=== PATIENT | female | born 1970 | race Caucasian/White ===

== ENCOUNTER 2019-01-06 13:09 | Emergency (ER) | payer OTHER, MEDICAID ==
[~2019-01-06] VITALS: Ht 162.6 cm; Wt 49.9 kg
[2019-01-06 13:15] VITALS: BP_SYST 96
--- NOTE | 2019-01-06 13:15 | NUR ---
Patient triaged and placed in waiting room. VSS and patient appears in no acute distress at this time. Accompanied by SON, awaiting available bed, and MD notified of need for MSE.
--- NOTE | 2019-01-06 14:05 | NUR ---
BROUGHT BACK TO BED #8 AND TRIAGED, REPORT GIVEN TO ANDREA
[2019-01-06] MEDS ORDERED: KETOROLAC TROMETHAMINE 60 MG/2 ML VIAL IM ONE (14:15)
--- NOTE | 2019-01-06 14:20 | NUR ---
Pt presents to ED c/o R foot redness tender to palpation.
[2019-01-06 14:25] LABS: BASOPHILS # (AUTO) 0.1 K/uL (0.0-0.2); BASOPHILS % (AUTO) 0.9 % (0.0-2.0); EOSINOPHILS # (AUTO) 0.2 K/uL (0.0-0.4); EOSINOPHILS % (AUTO) 2.3 % (0.0-4.0); HEMATOCRIT 39.5 % (36-48); HEMOGLOBIN 13.1 g/dL (12.0-16.0); LYMPHOCYTES # (AUTO) 2.2 K/uL (1.0-5.5); LYMPHOCYTES % (AUTO) 24.2 % (20.5-51.5); MEAN CORPUSCULAR HEMOGLOBIN 30 pg (27-31); MEAN CORPUSCULAR HGB CONC 33 % (32-36); MEAN CORPUSCULAR VOLUME 90 fL (79.0-98.0); MONOCYTES # (AUTO) 0.6 K/uL (0.0-1.0); MONOCYTES % (AUTO) 6.3 % (1.7-9.3); NEUTROPHILS # (AUTO) 5.9 K/uL (1.8-7.7); NEUTROPHILS % (AUTO) 66.3 % (40.0-70.0); PLATELET COUNT (AUTO) 270 K/uL (130-430); RED BLOOD CELL COUNT(AUTO) 4.41 MIL/uL (4.2-6.2); RED CELL DISTRIBUTION WIDTH 13.5 % (9.0-15.0); WHITE BLOOD COUNT (AUTO) 8.9 K/uL (4.8-10.8)
[2019-01-06 14:50] LABS: PROTHROMBIN TIME 9.9 SECS (9.5-12.5)
[2019-01-06 14:51] LABS: CALCIUM 8.9 mg/dL (8.4-11.0); CREATININE 0.73 mg/dL (0.55-1.30); POTASSIUM 3.6 mmol/L (3.5-5.1)
[2019-01-06 14:55] LABS: ALBUMIN 3.6 g/dL (3.4-4.8); C-REACTIVE PROTEIN QUANT 3.5 mg/dL (0-0.5); TOTAL BILIRUBIN 0.5 mg/dL (0.0-1.0); URIC ACID 3.8 mg/dL (2.4-7.0)
--- NOTE | 2019-01-06 15:00 | NUR ---
Pt reports paion resolving
--- NOTE | 2019-01-06 15:11 | NUR ---
Pt endorsed to Rosita CASTILLO
--- NOTE | 2019-01-06 15:15 | NUR ---
Recieved pt from [facility]. Pt is laying comfortably in bed post pain meds. Pt states she feels comfortable and pain is reduced. Waiting on labs. Will continue to monitor.
--- NOTE | 2019-01-06 16:08 | NUR ---
Patient given written and verbal discharge instructions and verbalizes understanding. ER MD discussed with patient the results and treatment provided. Patient in stable condition. ID arm band removed. Rx of Sherwood and Motrin given. Patient educated on pain management and to follow up with PMD. Pain Scale 0/10. Opportunity for questions provided and answered. Medication side effect fact sheet provided.
[2019-01-06 16:10] VITALS: BP_SYST 96
[2019-01-06 16:23] LABS: FREE T4 (FREE THYROXINE) 0.7 ng/dL (0.6-1.6); THYROID STIMULATING HORMONE 0.25 uIu/mL (0.34-4.82)
== END 2019-01-06 16:10 | disposition home or self-care (01) ==
LOC: SED 13:09
DX: M19.071 Primary osteoarthritis, right ankle and foot (principal); Z90.710 Acquired absence of both cervix and uterus
CPT/HCPCS: 36415; 73610; 80053; 84439; 84443; 84550; 84703; 85025; 85610; 85730; 86140; 96372; 99284; J1885